=== PATIENT | male | born 1950 | race Caucasian/White ===

== ENCOUNTER 2022-12-13 09:51 | Day surgery (SDC) | payer OTHER ==
[2022-12-13] MEDS: Ringers Lactate 1,000 ML IV ONE ×2 (10:32→11:17)
[2022-12-13 10:45] LABS: Hematocrit 44.4 % (39.6-49.0); Lymphocytes % 14.8 % (15.3-44.8); MCV 83.7 fL (80-100); MPV 6.4 fL (7.6-11.3); Platelets 283 thou/uL (152-406)
[2022-12-13 10:55] LABS: Potassium 3.7 mEq/L (3.5-5.1)
--- NOTE | 2022-12-13 11:08 | RAD REPORT ---
EXAM DESCRIPTION: Roman Noyola (2 Views)12/13/2022 10:56 am CLINICAL HISTORY: Preop COMPARISON: None FINDINGS: Mild elevation right hemidiaphragm The lungs appear clear of acute infiltrate. The heart is normal size
[2022-12-13] MEDS ORDERED: propofoL 200 MG/20 ML VIAL IV ONE (11:15)
[2022-12-13] MEDS ORDERED: FENTANYL CITR 100 MCG/2 ML ONE ×2 (11:15→12:05)
[2022-12-13] MEDS ORDERED: LIDOCAINE 2% MPF 5 ML VIAL ONE (11:15)
[2022-12-13] MEDS: CEFAZOLIN SODIUM 1 GM/VIAL ONE ×2 (11:17→11:38)
[2022-12-13] MEDS ORDERED: CEFAZOLIN SODIUM 1 GM/VIAL ONE (11:51)
[2022-12-13] MEDS ORDERED: dexAMETHasone 4 MG/ML VIAL ONE (11:51)
[2022-12-13] MEDS ORDERED: ONDANSETRON 4 MG/2 ML VIAL ONE (11:51)
[2022-12-13] MEDS ORDERED: EPHEDRINE SULF 50 MG/ML VIAL ONE (11:56)
--- NOTE | 2022-12-13 12:05 | P.BOP ---
Preoperative diagnosis: infected large deep subQ mass with abscess Postoperative diagnosis: same Primary procedure: Excision of infected large deep subQ mass [id number] Canvassing Manager: Amie Koroma (Yulia) Estimated blood loss: <10cc Specimen: mass, culture Findings: mass with deep abscess Anesthesia: General Complications: None Transferred to: Recovery Room Condition: Good
--- NOTE | 2022-12-13 13:41 | OP ---
Date of Procedure: 12/13/2022 Surgeon: Jose J Rosas MD Wet Finisher: Amie Olivo. Preoperative Diagnosis: Infected large deep subcutaneous mass with abscess. Postoperative Diagnosis: Infected large deep subcutaneous mass with abscess. Procedure: Excisional biopsy infected large deep subcutaneous mass 9 x 9 x 4 cm deep. Estimated Blood Loss: Less than 10 cc. Specimen: Mass and culture. Finding: Mass with deep abscess. This goes all the way down to fascia of the muscle, does not penet rate the muscle. Anesthesia: General plus local. Complications: None. Indication: This is a case of a 72-year-old patient who comes to us with enlarged, tender mass, red, increased temperature, draining pus, increasing in size. He wants that excised. It is large. It w as scheduled to be done under anesthetic. Today it is even larger than in the office few days ago. The benefits, alternatives, and risks of excision of infected large deep mass, possible abscess drain age fully explained, which include, but not limited to, infection, bleeding, damage to adjacent struc tures, anesthesia complication, nonhealing wound, [place], and even . He also understands this may n ot relieve any symptoms. He might need more than one surgical intervention. He understood, signed a consent. Description Of Procedure: Patient was explained the importance of dressing changes. It depends on t he size, we might even have to, in the future, use wound VAC and once infection is under control. Th is will require most likely several months to heal since it will be left to close by secondary intent . The area of concern was marked by me and the patient in the holding room. Patient brought to the operating room, placed in supine position. Anesthesia was done without complication. Patient was pl aced in lateral decubitus position with proper protection. Back area was prepped and draped in a xiomara rile fashion. Time-out was called. An incision was made all the way around the area of the mass all the way down deep to fascia of the muscle. This had a deep abscess that was cultured. The mass was completely excised. Hemostasis was obtained. Local anesthesia was applied. Then, after irrigation and hemostasis secured, we proceeded to pack the area with a dry dressing. Patient tolerated the pr ocedure well. Patient sent to Recovery in stable condition. DAR/MAHAMED Voice ID: [id number] Report ID: [id number]
--- NOTE | 2022-12-13 13:47 | DS ---
Diagnosis: Infected large deep subcutaneous mass. Procedure: Excisional biopsy infected large deep subcutaneous mass. Disposition: Home. Activity: As tolerated. No heavy lifting. Plan: [facility] at 8:00 o'clock in the morning. Ke ep dressings intact. Continue antibiotics as prescribed. DAR/MAHAMED Voice ID: [id number] Report ID: [id number]
[2022-12-13 13:55] VITALS: BP 144/70; O2SAT 96
[2022-12-13 13:57] VITALS: TEMP 97
--- NOTE | 2022-12-14 07:52 | EKG ---
Test Date: 2022-12-13 Test Time: 10:06:21 [employer]ing Machine Operator: LORETTA MEASUREMENT RESULTS: Intervals: Rate: 69 WV: 158 QRSD: 86 QT: 394 QTc: 422 [place]: P: 55 WV: 158 QRS: 28 T: 56 INTERPRETIVE STATEMENTS: Normal sinus rhythm Minimal voltage criteria for LVH, may be normal variant Borderline ECG Compared to ECG 04/07/1997 05:55:00 Left ventricular hypertrophy now present Sinus bradycardia no longer present Electronically Signed On 12-14-22 07:49:52 CDT by Doe Dye
== END 2022-12-13 13:35 | disposition home or self-care (01) ==
LOC: OR 09:51
PROVIDERS: ATTEND Surgery
PROC: 0JB70ZZ Excision of Back Subcutaneous Tissue and Fascia, Open Approach (ICD-10-PCS; principal; 2022-12-13 12:45)
DX: L72.0 Epidermal cyst (principal); L08.9 Local infection of the skin and subcutaneous tissue, unspecified; N40.0 Benign prostatic hyperplasia without lower urinary tract symptoms; I12.9 Hypertensive chronic kidney disease with stage 1 through stage 4 chronic kidney disease, or unspecified chronic kidney disease; N18.9 Chronic kidney disease, unspecified
CPT/HCPCS: 36415; 71046; 80048; 85025; 87070; 87075; 87205; 88304; 93005; J0690; J1100; J2001; J2405; J2704; J3010; J7120